=== PATIENT | male | born 1965 | race Caucasian/White ===

== ENCOUNTER → 2016-08-18 | Outpatient (CLI) | payer BC ==
[~2016-08-18] MED LIST: LISINOPRIL5 MG PO; NAPROXEN500 MG PO; NORCO 325 MG-51 TA1 PO; PERCOCET 7.5/321 TA1 PO; XANAX0.5 MG PO; ZANTAC 150150 MG PO
== END ==
LOC: LAB 13:39
DX: Z00.00 Encounter for general adult medical examination without abnormal findings (principal); T78.3XXA Angioneurotic edema, initial encounter; Z12.5 Encounter for screening for malignant neoplasm of prostate

== ENCOUNTER → 2016-10-27 | Outpatient (CLI) | payer BC ==
[2013-10-27 17:44] VITALS: BP 161/89
== END ==
LOC: LAB 08:32
DX: R10.32 Left lower quadrant pain (principal)

== ENCOUNTER → 2016-10-31 | Outpatient (CLI) | payer BC ==
[2013-10-27 17:44] VITALS: BP 161/89
== END ==
LOC: RAD 16:05
DX: R10.32 Left lower quadrant pain (principal); N28.1 Cyst of kidney, acquired

== ENCOUNTER → 2016-11-09 | Outpatient (CLI) | payer BC ==
[2013-10-27 17:44] VITALS: BP 161/89
== END ==
LOC: LAB 14:19
DX: R10.84 Generalized abdominal pain (principal)

== ENCOUNTER → 2016-11-10 | Outpatient (CLI) | payer BC ==
[2013-10-27 17:44] VITALS: BP 161/89
== END ==
LOC: RAD 15:00
DX: R10.84 Generalized abdominal pain (principal); K85.90 Acute pancreatitis without necrosis or infection, unspecified; N28.1 Cyst of kidney, acquired; K76.89 Other specified diseases of liver
CPT/HCPCS: Q9965; Q9967

== ENCOUNTER → 2019-03-17 | Outpatient (CLI) | payer BC ==
[2013-10-27 17:44] VITALS: BP 161/89
[2019-03-17 16:14] LABS: EOS # 0.1 (0.04-0.40); EOS % 0.8 % (0.0-4.0); HEMATOCRIT 45.4 % (42.0-52.0); LYMPH# 1.8 (1.50-4.00); MEAN CELL VOLUME 88 fl (78-100); MEAN CORPUSCULAR HEMOGLOBIN 31 pg (27-31); MEAN CORPUSCULAR HGB CONC 35 g/dL (33-37); MEAN PLATELET VOLUME 9.9 fl (7.4-10.4); MONO # 0.5 (0.20-0.80); PLATELET COUNT 197 K/mm3 (130-400); RED BLOOD COUNT 5.14 M/mm3 (4.20-5.60); RED CELL DISTRIBUTION WIDTH 12.2 % (11.5-14.5); WHITE BLOOD COUNT 6.4 K/mm3 (4.8-10.8)
[2019-03-17 16:25] LABS: ALBUMIN 4.8 g/dL (3.5-5.0); POTASSIUM 3.8 mmol/L (3.5-5.1)
[2019-03-17 16:26] LABS: CALCIUM 9.3 mg/dL (8.3-10.5)
[2019-03-17 16:28] LABS: TOTAL PROTEIN 8.2 g/dL (6.4-8.3)
[2019-03-17 16:30] LABS: TOTAL BILIRUBIN 0.7 mg/dL (0.2-1.2)
[2019-03-17 17:27] LABS: ERYTHROCYTE SEDIMENTATION RATE 3 mm/hr (0-20)
[2019-03-18 17:41] LABS: TESTOSTERONE 427 ng/dL (221-716)
== END ==
LOC: LAB 15:57
PROVIDERS: Internal Medicine
DX: Z00.00 Encounter for general adult medical examination without abnormal findings (principal); Z12.5 Encounter for screening for malignant neoplasm of prostate; Z12.11 Encounter for screening for malignant neoplasm of colon

== ENCOUNTER → 2019-04-02 | Outpatient (CLI) | payer BC ==
[2013-10-27 17:44] VITALS: BP 161/89
== END ==
LOC: CARDREHAB 12:06
DX: G47.10 Hypersomnia, unspecified (principal); G47.8 Other sleep disorders

== ENCOUNTER → 2020-06-21 | Outpatient (CLI) | payer BC ==
[2013-10-27 17:44] VITALS: BP 161/89
[2020-06-21 15:10] LABS: URINE WBC 0 /hpf (0-3)
[2020-06-21 15:13] LABS: EOS # 0.1 (0.04-0.40); EOS % 1.6 % (0.0-4.0); HEMATOCRIT 45.6 % (42.0-52.0); HEMOGLOBIN 15.8 g/dL (13.5-18.0); LYMPH# 1.9 (1.50-4.00); MEAN CELL VOLUME 90 fl (78-100); MEAN CORPUSCULAR HEMOGLOBIN 31 pg (27-31); MEAN CORPUSCULAR HGB CONC 35 g/dL (33-37); MEAN PLATELET VOLUME 10.4 fl (7.4-10.4); MONO # 0.4 (0.20-0.80); NEU # 3.9 (1.40-6.50); PLATELET COUNT 203 K/mm3 (130-400); RED BLOOD COUNT 5.08 M/mm3 (4.20-5.60); RED CELL DISTRIBUTION WIDTH 12.1 % (11.5-14.5); WHITE BLOOD COUNT 6.3 K/mm3 (4.8-10.8)
[2020-06-21 15:25] LABS: URINE APPEARANCE CLEAR; URINE BILIRUBIN NEGATIVE (NEGATIVE); URINE BLOOD NEGATIVE (NEGATIVE); URINE COLOR YELLOW; URINE GLUCOSE NEGATIVE (NEGATIVE); URINE KETONE NEGATIVE (NEGATIVE); URINE LEUKOCYTE ESTERASE NEGATIVE (NEGATIVE); URINE NITRATE NEGATIVE (NEGATIVE); URINE PROTEIN(semi-quant) NEGATIVE (NEGATIVE); URINE UROBILINOGEN NORMAL (NORMAL)
[2020-06-21 15:26] LABS: ALBUMIN 4.5 g/dL (3.5-5.0); POTASSIUM 3.4 mmol/L (3.5-5.1)
[2020-06-21 15:27] LABS: CALCIUM 8.8 mg/dL (8.3-10.5)
[2020-06-21 15:28] LABS: TOTAL PROTEIN 7.4 g/dL (6.4-8.3)
[2020-06-21 15:30] LABS: TOTAL BILIRUBIN 0.5 mg/dL (0.2-1.2)
== END ==
LOC: LAB 15:00
PROVIDERS: Internal Medicine
DX: R10.84 Generalized abdominal pain (principal)

== ENCOUNTER → 2020-06-25 | Outpatient (CLI) | payer BC ==
[2013-10-27 17:44] VITALS: BP 161/89
== END ==
LOC: RAD 12:42
DX: N28.1 Cyst of kidney, acquired (principal); K76.9 Liver disease, unspecified; K57.30 Diverticulosis of large intestine without perforation or abscess without bleeding; N32.89 Other specified disorders of bladder; Z90.49 Acquired absence of other specified parts of digestive tract
CPT/HCPCS: Q9967

== ENCOUNTER → 2020-09-13 | Outpatient (CLI) | payer BC ==
[2013-10-27 17:44] VITALS: BP 161/89
== END ==
LOC: RAD 15:57
DX: R10.9 Unspecified abdominal pain (principal); Z90.49 Acquired absence of other specified parts of digestive tract

== ENCOUNTER → 2021-01-18 | Outpatient (CLI) | payer BC ==
[2021-01-18 17:19] LABS: BASO # 0.04 (0.02-0.10); EOS # 0.15 (0.04-0.40); HEMATOCRIT 46.9 % (42.0-52.0); HEMOGLOBIN 16.6 g/dL (13.5-18.0); LYMPH# 1.84 (1.50-4.00); MEAN CELL VOLUME 89 fl (78-100); MEAN CORPUSCULAR HEMOGLOBIN 32 pg (27-31); MEAN CORPUSCULAR HGB CONC 35 g/dL (33-37); MEAN PLATELET VOLUME 9.7 fl (7.4-10.4); MONO # 0.48 (0.20-0.80); NEU # 5.14 (1.40-6.50); PLATELET COUNT 220 K/mm3 (130-400); RED BLOOD COUNT 5.27 M/mm3 (4.20-5.60); RED CELL DISTRIBUTION WIDTH 11.9 % (11.5-14.5); WHITE BLOOD COUNT 7.7 K/mm3 (4.8-10.8)
[2021-01-18 17:29] LABS: POTASSIUM 3.6 mmol/L (3.5-5.1)
[2021-01-18 17:30] LABS: ALBUMIN 4.8 g/dL (3.5-5.0)
[2021-01-18 17:31] LABS: CALCIUM 10.1 mg/dL (8.3-10.5)
[2021-01-18 17:32] LABS: TOTAL PROTEIN 7.9 g/dL (6.4-8.3)
[2021-01-18 19:10] LABS: ERYTHROCYTE SEDIMENTATION RATE 3 mm/hr (0-20)
== END ==
LOC: LAB 16:48
PROVIDERS: Internal Medicine
DX: Z00.00 Encounter for general adult medical examination without abnormal findings (principal); Z12.11 Encounter for screening for malignant neoplasm of colon

== ENCOUNTER → 2021-07-06 | Outpatient (CLI) | payer BC | LOC: RAD 11:30 | DX: S62.307A Unspecified fracture of fifth metacarpal bone, left hand, initial encounter for closed fracture (principal) ==